=== PATIENT | female | born 1945 | race Caucasian/White ===

== ENCOUNTER 2019-11-13 21:35 | Observation (INO) ==
[2019-11-13 23:22] LABS: Basophils % 0.4 % (0.0-0.8); Eosinophils # 0.2 10*3/uL (0.0-0.87); Eosinophils % 1.7 % (0.00-10.9); Hematocrit 41.1 VOL% (35.7-47.0); Hemoglobin 13.7 GM/DL (12.0-16.0); Immature Granulocytes % 0.3 %; Immature Granulocytes Absolute 0.03 #; Lymphocytes # 2.5 10*3/uL (1.4-4.0); Lymphocytes % 25.2 % (21.3-54.2); Mean Corpuscular HGB Conc 33.3 GM/DL (32-36); Mean Corpuscular Volume 90.7 FL (87-102); Mean Platelet Volume 9.3 FL (9.6-12.0); Monocytes % 10.8 % (1.7-12.7); Neutrophils % 61.6 % (38.7-73.9); Platelet Count 324 T/CUMM (130-400); Red Blood Count 4.53 MC/CUMM (3.8-5.5); White Blood Count 9.9 T/CUMM (4-12)
[2019-11-13 23:38] LABS: Acetaminophen < 2.0 UG/ML (10-30); INR 1.1; PT Patient Result 11.5 SECS (9.6-12.2); Salicylate < 2.8 MG/DL (2.8-20)
[2019-11-13 23:41] LABS: Alanine Aminotransferase 11 U/L (13-56); Albumin 2.9 G/DL (3.4-5.0); Alkaline Phosphatase 63 U/L (45-117); Aspartate Amino Transferase 17 U/L (0-37); Bilirubin,Total < 0.39 MG/DL (0.2-1.0); Blood Urea Nitrogen 16 MG/DL (7-18); Calcium 8.6 MG/DL (8.5-10.1); Estimated Glom Filtration Rate 93 ML/MIN; Glucose 82 MG/DL (74-106); Osmolality,Calculated 261.7 MOS/KG (273-304); Total Protein 8.6 G/DL (6.4-8.3); Troponin I 0.033 NG/ML (0.00-0.045)
[2019-11-14 00:18] LABS: Apearance,Urine Slightly Hazy (Clear); Bacteria,Urine Occasional /HPF (Few); Bilirubin,Urine Negative (Negative); Blood, Urine Negative (Negative); Glucose,Urine (UA) Negative (Negative); Hyaline Casts,Urine 6 /LPF (0-3); Ketones,Urine 20 mg/dL (Negative); Mucus,Urine Occasional /LPF (Occasional); Nitrite,Urine Negative (Negative); Protein,Urine Negative; RBC,Urine 3 /HPF (0-4); Squamous Epithelial Cell,Urine Occasional /HPF (0-10); Urine Color Yellow (Yellow); Urine Specific Gravity 1.025 (1.001-1.035); Urine Urobilinogen < 2.0 EU/DL (0.2-1.0); WBC,Urine 2 /HPF (0-6)
[2019-11-14 00:25] LABS: Barbiturates Screen,Urine Negative (Negative); Benzodiazepines Screen,Urine Negative (Negative); Cannabinoid Screen,Urine Negative (Negative); Opiate Screen,Urine Negative (Negative); Phencyclidine Screen,Urine Negative (Negative)
[2019-11-14] MEDS ORDERED: ONDANSETRON 4 MG/2 ML VIAL IV PRN (00:52)
[2019-11-14] MEDS: LORazepam 2 MG/1 ML VIAL IV PRN ×3 (07:48→20:00)
[2019-11-14] MEDS ORDERED: QUEtiapine 100 MG TABLET PO PRN (07:52)
[2019-11-14] MEDS: DIVALPROEX ER 500 MG TABLET PO SCH (12:34)
[2019-11-14] MEDS: RALOXIFENE 60 MG TABLET PO SCH (12:34)
[2019-11-14] MEDS: chlordiazePOXIDE 10 MG CAPSULE PO SCH ×3 (12:35→20:10)
[2019-11-14] MEDS ORDERED: ZALEPLON 5 MG CAPSULE PO SCH (21:00)
[2019-11-14] MEDS ORDERED: traZODone 50 MG TABLET PO SCH (21:00)
[2019-11-14] MEDS ORDERED: DIVALPROEX ER 500 MG TABLET PO SCH (21:00)
[2019-11-15 06:26] LABS: Basophils % 0.4 % (0.0-0.8); Eosinophils # 0.3 10*3/uL (0.0-0.87); Eosinophils % 3.7 % (0.00-10.9); Hematocrit 39.6 VOL% (35.7-47.0); Hemoglobin 12.9 GM/DL (12.0-16.0); Immature Granulocytes % 0.3 %; Immature Granulocytes Absolute 0.02 #; Lymphocytes # 2.7 10*3/uL (1.4-4.0); Lymphocytes % 36.8 % (21.3-54.2); Mean Corpuscular HGB Conc 32.6 GM/DL (32-36); Mean Corpuscular Volume 92.1 FL (87-102); Mean Platelet Volume 9.8 FL (9.6-12.0); Monocytes % 12.9 % (1.7-12.7); Neutrophils % 45.9 % (38.7-73.9); Platelet Count 283 T/CUMM (130-400); Red Cell Distribution Width 12.9 % (9.3-17.3); White Blood Count 7.2 T/CUMM (4-12)
[2019-11-15 06:32] LABS: Calcium 8.5 MG/DL (8.5-10.1); Osmolality,Calculated 267.1 MOS/KG (273-304)
[2019-11-15] MEDS ORDERED: LEVOTHYROXINE 112 MCG TABLET PO SCH (07:00)
[2019-11-15] MEDS: RALOXIFENE 60 MG TABLET PO SCH (08:22)
[2019-11-15] MEDS: DIVALPROEX ER 500 MG TABLET PO SCH (08:23)
[2019-11-15] MEDS: chlordiazePOXIDE 10 MG CAPSULE PO SCH (08:30)
[2019-11-15 11:09] VITALS: BP 135/83
== END 2019-11-15 12:15 ==
LOC: EDUNIT# → EDBD → N.ED 21:35 → N.EDINP 21:35 → SUATTDRO 11-14 00:52 → N.4E 11-14 01:35
PROVIDERS: ADMIT Internal Medicine; ATTEND Internal Medicine